=== PATIENT | male | born 1970 | race Caucasian/White ===

== ENCOUNTER 2017-03-12 07:38 | Outpatient (CLI) | payer OTHER ==
--- NOTE | 2017-03-12 11:36 | Ultrasound Report ---
LIVER ULTRASOUND: 03/12/2017 CLINICAL INDICATION: Abnormal LFTs. TECHNIQUE: Real-time scanning was performed with event sales representative static images obtained. FINDINGS: The liver measures 11.7 cm. Hepatic echogenicity is diffusely increased, compatible with fatty infiltration. No focal parenchymal lesion or intrahepatic biliary dilatation is seen. The com mon bile duct measures 3 mm. The gallbladder demonstrates three echogenic nodules, which may represe nt adherent tumefactive sludge or small polyps. No shadowing stone, wall thickening, or pericholecys tic fluid is seen. IMPRESSION: ECHOGENIC LIVER, COMPATIBLE WITH FATTY INFILTRATION. ADHERENT TUMEFACTIVE SLUDGE OR SMA LL POLYPS IN THE GALLBLADDER. NO EVIDENCE OF BILIARY OBSTRUCTION. JOB #: [id number] EXT JOB #:[id number]
== END 2017-03-12 07:39 | disposition home or self-care (01) ==
LOC: DI 07:38
PROVIDERS: ATTEND Internal Medicine
DX: R94.5 Abnormal results of liver function studies (principal)
CPT/HCPCS: 76705